=== PATIENT | male | born 1950 | race Caucasian/White ===

== ENCOUNTER → 2016-05-25 | Outpatient (CLI) | payer MEDICARE, OTHER ==
--- NOTE | 2016-05-25 14:26 | REP ---
PA AND LATERAL CHEST: 05/25/2016. Clinical history: Rhonchi. Comparison: 11/30/2015, 02/01/2014. Findings: Lungs are well inflated and without pleural effusion, lateral pleural thickening or apical scarring. No infiltrate, atelectasis or mass. The heart, mediastinal and hilar contours are normal. There are a few cuffed bronchi in the perihilar regions that may reflect some reactive airway disease or bronchitis. The aorta is mildly tortuous and unchanged but normal for age. Airway intact. Bony thorax shows marginal osteophytes in the lower thoracic spine without compression deformity. Impression: 1. Perihilar changes may reflect some bronchitis or reactive airway disease. No consolidation, effusion, cardiomegaly or edema. Signed by Matt Maciel MD 05/25/2016 07:27 P
== END ==
LOC: M LRY 10:00
PROVIDERS: ATTEND Nurse Practitioner Family
DX: R06.89 Other abnormalities of breathing (principal)
CPT/HCPCS: 71020; 94640; G0463

== ENCOUNTER → 2016-12-23 | Outpatient (CLI) | payer MEDICARE, OTHER ==
[2016-12-23 12:24] LABS: BASO # 0.1 K/mm3 (0.0-0.2); BASO % 0.8 % (0.0-1.0); EOS # 0.1 K/mm3 (0.0-0.50); EOS % 1.3 % (0.0-3.0); LARGE UNSTAINED CELL # 0.2 K/mm3 (0.0-0.4); LARGE UNSTAINED CELL % 2.4 % (0.0-4.0); LYMPH # 2.9 K/mm3 (1.5-4.5); LYMPH % 28.6 % (24.0-44.0); MEAN CORPUSCULAR HEMOGLOBIN 31.1 pg (27.0-33.0); MEAN CORPUSCULAR HGB CONC 33.6 g/dl (32.0-36.5); MEAN CORPUSCULAR VOLUME 92.4 fl (80.0-96.0); MONO # 0.5 K/mm3 (0.0-0.8); MONO % 5.2 % (0.0-5.0); NEUTROPHILS # 6.3 K/mm3 (1.8-7.7); NEUTROPHILS % 61.7 % (36.0-66.0); PLATELET COUNT, AUTOMATED 283 k/mm3 (150-450); RED CELL DISTRIBUTION WIDTH 13.1 % (11.5-14.5); WHITE BLOOD COUNT 10.1 K/mm3 (4.0-10.0)
[2016-12-23 12:33] LABS: ALBUMIN 3.8 GM/DL (3.2-5.2); ALBUMIN/GLOBULIN RATIO 1.23 (1.00-1.93); ALKALINE PHOSPHATASE 37 U/L (45-117); ALT/SGPT 23 U/L (12-78); ANION GAP 7 MEQ/L (8-16); AST/SGOT 12 U/L (15-37); BILIRUBIN,TOTAL 0.3 MG/DL (0.2-1.0); BLOOD UREA NITROGEN 22 MG/DL (7-18); CALCIUM LEVEL 10.1 MG/DL (8.8-10.2); CARBON DIOXIDE LEVEL 30 MEQ/L (21-32); CHLORIDE LEVEL 105 MEQ/L (98-107); CHOLESTEROL LEVEL 159 MG/DL (<200); CREATININE FOR GFR 1.14 MG/DL (0.70-1.30); FREE T4 0.93 NG/DL (0.76-1.46); GLOMERULAR FILTRATION RATE > 60.0 (>49); GLUCOSE, FASTING 108 MG/DL (80-110); POTASSIUM SERUM 4.2 MEQ/L (3.5-5.1); SODIUM LEVEL 142 MEQ/L (136-145); TOTAL PROTEIN 6.9 GM/DL (6.4-8.2); TRIGLYCERIDES LEVEL 180 MG/DL (<150)
== END ==
LOC: M LAB 11:22
PROVIDERS: ATTEND Nurse Practitioner Adult Health
DX: E11.9 Type 2 diabetes mellitus without complications (principal)

== ENCOUNTER → 2017-06-29 | Outpatient (CLI) | payer MEDICARE, OTHER ==
[2017-06-29 07:38] LABS: BASO # 0.1 10^3/uL (0.0-0.2); BASO % 0.8 % (0.0-1.0); EOS # 0.3 10^3/uL (0.0-0.50); EOS % 2.4 % (0.0-3.0); HEMATOCRIT 50.3 % (42.0-52.0); HEMOGLOBIN 16.7 g/dl (14.0-18.0); IMMATURE GRANULOCYTE # 0.1 10^3/uL (0-0); IMMATURE GRANULOCYTE % 0.8 % (0-3.0); LYMPH # 4.3 10^3/uL (1.5-4.5); LYMPH % 37.1 % (24.0-44.0); MEAN CORPUSCULAR HEMOGLOBIN 29.8 pg (27.0-33.0); MEAN CORPUSCULAR HGB CONC 33.2 g/dl (32.0-36.5); MEAN CORPUSCULAR VOLUME 89.8 fl (80.0-96.0); MONO # 0.8 10^3/uL (0.0-0.8); MONO % 6.5 % (0.0-5.0); NEUTROPHILS # 6.1 10^3/uL (1.8-7.7); NEUTROPHILS % 52.4 % (36.0-66.0); PLATELET COUNT, AUTOMATED 318 10^3/uL (150-450); WHITE BLOOD COUNT 11.6 10^3/uL (4.0-10.0)
[2017-06-29 08:06] LABS: ALBUMIN 3.8 GM/DL (3.2-5.2); ALBUMIN/GLOBULIN RATIO 1.19 (1.00-1.93); ALKALINE PHOSPHATASE 40 U/L (45-117); ALT/SGPT 28 U/L (12-78); ANION GAP 5 MEQ/L (8-16); AST/SGOT 15 U/L (7-37); BILIRUBIN,TOTAL 0.3 MG/DL (0.2-1.0); BLOOD UREA NITROGEN 24 MG/DL (7-18); CALCIUM LEVEL 9.8 MG/DL (8.8-10.2); CARBON DIOXIDE LEVEL 31 MEQ/L (21-32); CHLORIDE LEVEL 107 MEQ/L (98-107); CHOLESTEROL LEVEL 174 MG/DL (<200); CHOLESTEROL RISK RATIO 5.437 (<5); CREATININE FOR GFR 1.28 MG/DL (0.70-1.30); FREE T4 0.84 NG/DL (0.76-1.46); GLOMERULAR FILTRATION RATE 59.5 (>49); GLUCOSE, FASTING 123 MG/DL (70-100); HDL CHOLESTEROL 32 MG/DL (>40); LDL CHOLESTEROL 86.2 MG/DL (<100); NON-HDL-C 142 MG/DL; POTASSIUM SERUM 4.2 MEQ/L (3.5-5.1); SODIUM LEVEL 143 MEQ/L (136-145); TRIGLYCERIDES LEVEL 279 MG/DL (<150)
[2017-06-29 08:50] LABS: ESTIMATED AVERAGE GLUCOSE 163 MG/DL (60-110); HEMOGLOBIN A1c 7.3 %
[2017-06-29 09:26] LABS: TOTAL 25(OH) VITAMIN D 41.6 NG/ML (30.0-100.0)
== END ==
LOC: M LAB 06:28
DX: E11.9 Type 2 diabetes mellitus without complications (principal); E55.9 Vitamin D deficiency, unspecified; E78.4 Other hyperlipidemia
CPT/HCPCS: 84443

== ENCOUNTER → 2019-02-20 | Outpatient (REF) | payer MEDICARE, OTHER | LOC: M SFHCLERA 09:31 | PROVIDERS: ATTEND Nurse Practitioner Family | DX: R30.0 Dysuria (principal) | CPT/HCPCS: 81002; 87086; G0463 ==

== ENCOUNTER → 2019-05-17 | Outpatient (REF) | payer MEDICARE, OTHER ==
[2019-05-17 13:37] LABS: BLOOD UREA NITROGEN 21 MG/DL (7-18); CALCIUM LEVEL 9.5 MG/DL (8.8-10.2); CARBON DIOXIDE LEVEL 27 MEQ/L (21-32); CHLORIDE LEVEL 112 MEQ/L (98-107); CREATININE FOR GFR 1.12 MG/DL (0.70-1.30); GLOMERULAR FILTRATION RATE > 60.0 (>42); GLUCOSE, FASTING 116 MG/DL (70-100); POTASSIUM SERUM 3.8 MEQ/L (3.5-5.1); SODIUM LEVEL 144 MEQ/L (136-145)
== END ==
LOC: M LABDRAW1 12:49
PROVIDERS: ATTEND Urology
DX: R30.0 Dysuria (principal)

== ENCOUNTER → 2019-05-17 | Outpatient (REF) | payer MEDICARE, OTHER ==
[~2019-05-17] MED LIST: ENAL20TA PO; FENO145T7 PO; PARO12.54 PO; PYRI1TAB5 PO
== END ==
LOC: M SMT 13:09
PROVIDERS: ATTEND Urology
DX: R30.0 Dysuria (principal)
CPT/HCPCS: 36415; 80048; 88108; G0463

== ENCOUNTER → 2019-05-25 | Outpatient (CLI) | payer MEDICARE, OTHER ==
[~2019-05-25] MED LIST changes: -ENAL20TA PO; -FENO145T7 PO; +ISOVUE-370 76% 100ML VIAL (Q9967) As Ordered ONE; -PARO12.54 PO; -PYRI1TAB5 PO
--- NOTE | 2019-05-25 15:14 | REP ---
Clinical: Microscopic hematuria. Technique: Axial precontrast, contrast enhanced, and delayed images of the abdomen and pelvis using 100 ml Isovue 370 intravenous contrast material with coronal and sagittal re-formations. Volume rendered CT 3-D urogram obtained. Findings: Small left-sided renovascular calcifications are identified along with nonobstructing 9 mm calculus in the lower pole. No associated hydronephrosis or obstructing ureteral calculi identified. Bilateral perinephric stranding is noted which may represent chronic change. Small bilateral simple and complex cysts are suggested measuring up to approximately 1.4 cm. No definite renal mass. Bladder demonstrates presumed chronic wall thickening and 3.8 cm bladder stone. Liver demonstrates few scattered hypodensities measuring up to 2 cm suggesting small cysts. Spleen, pancreas, gallbladder, and bilateral adrenal glands are normal. The enteric system is without obstruction or acute inflammatory process. Colonic diverticulosis noted without acute diverticulitis. Normal terminal ileum and appendix identified in the right lower quadrant. Further evaluation the pelvis demonstrates normal prostate gland and fat containing left inguinal hernia. No ascites. No free air. No adenopathy. Atherosclerotic changes to the aorta and vasculature noted without aneurysm or dissection. Musculoskeletal structures demonstrate degenerative changes without focal abnormality. Impression: 1. A 9 mm nonobstructing left renal calculus and 3.8 cm bladder stone. 2. Few bilateral simple and complex renal cysts may warrant ultrasound evaluation to exclude the possibility of small renal mass. 3. Diverticulosis without acute diverticulitis. Electronically Signed by Jorge Anderson MD 05/25/2019 03:05 P
== END ==
LOC: M RAD 13:45
PROVIDERS: ATTEND Urology
DX: N20.0 Calculus of kidney (principal); N21.0 Calculus in bladder; N28.1 Cyst of kidney, acquired; K57.30 Diverticulosis of large intestine without perforation or abscess without bleeding; F17.200 Nicotine dependence, unspecified, uncomplicated; R31.29 Other microscopic hematuria
CPT/HCPCS: 74178; Q9967

== ENCOUNTER 2019-05-29 23:05 | Emergency (ER) | payer MEDICARE, OTHER ==
[~2019-05-29] VITALS: Ht 182.9 cm; Wt 100.0 kg
[2019-05-29 23:55] LABS: APPEARANCE, URINE HAZY (CLEAR); BACTERIA, URINE AUTO NEGATIVE (NEGATIVE); BILIRUBIN, URINE AUTO NEGATIVE (NEGATIVE); BLOOD, URINE BLOOD 3+ (NEGATIVE); COLOR, URINE YELLOW (YELLOW); GLUCOSE, URINE (UA) AUTO NEGATIVE (NEGATIVE); KETONE, URINE AUTO TRACE mg/dL (NEGATIVE); LEUKOCYTE ESTERASE, URINE AUTO NEGATIVE (NEGATIVE); MUCUS, URINE SMALL (NEGATIVE); NITRITE, URINE AUTO NEGATIVE (NEGATIVE); PROTEIN, URINE AUTO 3+ mg/dL (NEGATIVE); RBC, URINE AUTO TNTC /HPF (0-3); SQUAMOUS EPITHELIAL CELL UR AU 0 /HPF (0-6); TRANSITIONAL EPITHELIAL AUTO <1 /HPF; WBC, URINE AUTO 11 /HPF (0-3)
[2019-05-30] MEDS ORDERED: FENO145T7 PO (00:12)
[2019-05-30] MEDS ORDERED: ENAL20TA PO (00:12)
[2019-05-30] MEDS ORDERED: PARO12.54 PO (00:12)
[2019-05-30] MEDS ORDERED: PYRI1TAB5 PO (01:51)
[2019-05-30] MEDS ORDERED: OXYCODONE/APAP 5MG/325MG(BULK FOR ED) 1 TABLET PO ONE (02:00)
[2019-05-30] MEDS ORDERED: PHENAZOPYRIDINE 100 MG TAB PO ONE (02:00)
[2019-05-30 02:14] VITALS: BP 151/86
== END 2019-05-30 02:15 | disposition home or self-care (01) ==
LOC: M ED 23:05
DX: N21.0 Calculus in bladder (principal); R30.0 Dysuria; R31.9 Hematuria, unspecified; F17.200 Nicotine dependence, unspecified, uncomplicated; E78.00 Pure hypercholesterolemia, unspecified; E11.9 Type 2 diabetes mellitus without complications; F32.9 Major depressive disorder, single episode, unspecified; Z79.899 Other long term (current) drug therapy

== ENCOUNTER → 2019-06-14 | Outpatient (CLI) | payer MEDICARE, OTHER ==
[~2019-06-14] MED LIST changes: +ENAL20TA PO; +FENO145T7 PO; -ISOVUE-370 76% 100ML VIAL (Q9967) As Ordered ONE; +PARO12.54 PO; +PYRI1TAB5 PO
--- NOTE | 2019-06-14 13:08 | REP ---
CHEST, TWO VIEWS: COMPARISON: 05/25/2016. There is no evidence of acute infiltrate. No pleural effusion is seen. The heart is normal in size. The mediastinal silhouette is unremarkable. The visualized osseous structures are intact. There are degenerative changes of the spine. IMPRESSION: No acute pulmonary disease. Electronically Signed by Mati Dave MD 06/14/2019 07:56 P
== END ==
LOC: M LRY 11:51
PROVIDERS: ATTEND Nurse Practitioner Adult Health
DX: Z01.818 Encounter for other preprocedural examination (principal); N21.0 Calculus in bladder

== ENCOUNTER 2019-06-23 08:46 | Day surgery (SDC) | payer MEDICARE, OTHER ==
[~2019-06-23] VITALS: Ht 182.9 cm; Wt 98.4 kg
[~2019-06-23 08:46] MED LIST changes: +JANU50TA25 PO; +LIDOCAINE 1% MDV 20ML VIAL SQ PRN; +NITR100C2 PO; +ceFAZolin SOD 2 GM in IV 1 EA IV ONE
[2019-06-23] MEDS ORDERED: LR 1,000 ML IV ONE (10:00)
[2019-06-23] MEDS ORDERED: fentaNYL 100 MCG/2 ML INJECTION (J3010) As Ordered ONE ×2 (11:00→11:57)
[2019-06-23] MEDS ORDERED: MIDAZOLAM INJ 2 MG/2 ML VIAL (J2250) As Ordered ONE (11:00)
[2019-06-23] MEDS ORDERED: propofoL 200 MG/20 ML VIAL As Ordered ONE (11:01)
[2019-06-23] MEDS ORDERED: LIDOCAINE 2% INJ 100 MG/5 ML SDV (FOR ANES.) As Ordered ONE (11:01)
[2019-06-23] MEDS ORDERED: dexameTHASONE 4 MG/ML 1ML VIAL (J1100) As Ordered ONE (11:01)
[2019-06-23] MEDS ORDERED: ONDANSETRON 4MG/2ML VIAL (J2405) As Ordered ONE (11:01)
[2019-06-23] MEDS ORDERED: ePHEDrine SULFATE 25 MG/5 ML(5MG/ML) SYRINGE As Ordered ONE (12:40)
[2019-06-23] MEDS ORDERED: ONDANSETRON 4MG/2ML VIAL (J2405) IV PRN (13:15)
[2019-06-23] MEDS ORDERED: LR 1,000 ML IV SCH (13:15)
[2019-06-23] MEDS ORDERED: fentaNYL 100 MCG/2 ML INJECTION (J3010) IV PRN (13:15)
[2019-06-23] MEDS ORDERED: oxyCODONE 5MG TAB PO PRN (13:15)
[2019-06-23] MEDS ORDERED: ACETAMINOPHEN TAB 650MG DOSE (2X325MG) PO PRN (14:15)
[2019-06-23] MEDS ORDERED: oxyCODONE 5MG TAB As Ordered ONE (14:25)
[2019-06-23 15:00] VITALS: BP 142/81
--- NOTE | 2019-06-23 18:16 | RO ---
DATE OF PROCEDURE: 06/23/2019 PREOPERATIVE DIAGNOSIS: Bladder stone. POSTOPERATIVE DIAGNOSIS: Bladder stone. OPERATIVE PROCEDURE: Cystoscopy, laser cystolitholapaxy, urethral dilation. SURGEON: Mauri Waddell MD UTILITIES AND MAINTENANCE SUPERVISOR: None. ANESTHESIA: General. OPERATIVE INDICATIONS: This 68-year-old male was found to have an approximately 4 to 5 cm heraclio bladder stone on recent office cystoscopy. He was brought to the operating room today for treatment. DESCRIPTION OF OPERATION: The patient was brought to the operating room and general anesthesia was induced. Prophylactic antibiotics were infused. He was then placed in the dorsal lithotomy position and prepped and draped in the usual sterile fashion. At this point I attempted to insert a resectoscope into the urethral meatus using the visual obturator, but it would not go as the meatus was too narrow. I therefore dilated the urethral meatus to 32 [place] using curved metal sounds. I then inserted the resectoscope all the way into the bladder and once inside the patient had a very large stone that you could see protruding right through the bladder neck. I then utilized a 1000 micron laser fiber and started fragmenting the stone into smaller pieces. Of note this worked well, but it was taking a very long time to adequately fragment the stone. I then traded out the resectoscope for a nephroscope and utilized the CyberWand to fragment the stone. Of note, this fragmented the stone at a much faster pace. Once the stone was adequately fragmented, I utilized an Ellik evacuator and evacuated a large amount of stone out of the bladder. There were a few stone fragments that were just a little too large to evacuate and I used the laser to fragment the remainder of these stones. Once that was done, I utilized the Ellik evacuator again and removed all the remainder of the stone fragments from the bladder. Once all the fragments were removed, the resectoscope was removed and #18-[place] Mercado catheter was inserted into the bladder. The balloon was filled with 10 mL of sterile water and then the catheter was connected to gravity drainage. This marked the conclusion of the procedure. The patient was then taken out of the dorsal lithotomy position, awakened from anesthesia and transported to the recovery room in stable condition. ESTIMATED BLOOD LOSS: 10 mL. COMPLICATIONS: None. SPECIMENS: Bladder stone fragments. PLAN: The patient will followup in clinic in a few days for catheter removal. [facility]ENTER[facility]
== END 2019-06-23 15:10 | disposition home or self-care (01) ==
LOC: M SDC 08:46
PROVIDERS: ATTEND Urology
DX: N21.0 Calculus in bladder (principal); N20.0 Calculus of kidney; Q61.00 Congenital renal cyst, unspecified; E11.9 Type 2 diabetes mellitus without complications; I10 Essential (primary) hypertension; E78.00 Pure hypercholesterolemia, unspecified; N40.0 Benign prostatic hyperplasia without lower urinary tract symptoms; Z87.440 Personal history of urinary (tract) infections; F17.210 Nicotine dependence, cigarettes, uncomplicated; Z79.899 Other long term (current) drug therapy; Z79.84 Long term (current) use of oral hypoglycemic drugs
CPT/HCPCS: 52318; 82365; 88300; C1769; J0690; J1100; J2250; J2405; J3010

== ENCOUNTER → 2019-08-09 | Outpatient (CLI) | payer MEDICARE, OTHER ==
[~2019-08-09] MED LIST changes: -LIDOCAINE 1% MDV 20ML VIAL SQ PRN; -ceFAZolin SOD 2 GM in IV 1 EA IV ONE
--- NOTE | 2019-08-09 15:43 | REP ---
REASON FOR EXAM: Clinical sinusitis with left retro-ocular pressure. Limited plain film examination of the paranasal sinuses show no abnormal air fluid levels or soft tissue densities. The bony architecture surrounding the paranasal sinuses is within normal limits. IMPRESSION: Unremarkable plain film examination of the paranasal sinuses. If paranasal sinus mucosal abnormalities are of clinical concern, then CT is more sensitive and should be considered. Electronically Signed by Pablo Payne DO 08/09/2019 03:44 P
== END ==
LOC: M LRY 13:12
PROVIDERS: ATTEND Nurse Practitioner Adult Health
DX: J01.90 Acute sinusitis, unspecified (principal)

== ENCOUNTER → 2019-08-26 | Outpatient (CLI) | payer MEDICARE, OTHER ==
[~2019-08-26] MED LIST changes: +ISOVUE-370 76% 100ML VIAL As Ordered ONE
--- NOTE | 2019-08-26 16:56 | REP ---
MAXILLOFACIAL CT STUDY WITH IV CONTRAST: HISTORY: Sinusitis. Elevated white blood cell count. Eye pain. Comparison paranasal sinus radiographs are from August 09, 2019. CT CONTRAST DOSE: 75 mL of intravenous Isovue 370 is administered. FINDINGS: Preliminary lead ingot molder images demonstrate that the patient is edentulous. There is a 1.5 cm mucous retention cyst in the floor the left maxillary sinus. A small mucous retention cyst is seen inferiorly in the right maxillary sinus. The maxillary sinuses are otherwise clear. Ethmoid air cells are clear. Sphenoid aeration is normal. The frontal sinuses are clear. Mastoid aeration is normal and symmetric. There is mild vascular calcification in the distal internal carotid arteries. No intraorbital mass or abnormal fluid collection is seen. The deep facial soft tissues are unremarkable. Ostiomeatal complexes are clear. Bony nasal septum is in the midline. Nasal turbinate soft tissues are unremarkable. A small aerated cass bullosa is noted on the left. 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 This is fairly large, measuring 13 mm in greatest diameter. No other intracranial abnormality. IMPRESSION: 1. 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 2. Small mucous retention cysts are seen, one on each side in the maxillary sinuses. 3. Otherwise unremarkable maxillofacial CT study. Electronically Signed by Cole Bosch MD 08/26/2019 05:10 P
== END ==
LOC: M RAD 14:29
PROVIDERS: ATTEND Nurse Practitioner Adult Health
DX: I67.1 Cerebral aneurysm, nonruptured (principal); J34.1 Cyst and mucocele of nose and nasal sinus; J01.90 Acute sinusitis, unspecified; D72.829 Elevated white blood cell count, unspecified; H57.12 Ocular pain, left eye
CPT/HCPCS: 70487; Q9967

== ENCOUNTER → 2019-12-04 | Outpatient (CLI) | payer MEDICARE, OTHER ==
[~2019-12-04] MED LIST changes: -ENAL20TA PO; +ENAL20TA11 PO; -ISOVUE-370 76% 100ML VIAL As Ordered ONE
== END ==
LOC: M LABSMTC 09:54
PROVIDERS: ATTEND Student in an Organized Health Care Education/Training Program
DX: Z11.59 Encounter for screening for other viral diseases (principal)
CPT/HCPCS: C9803; U0003

== ENCOUNTER 2021-12-18 10:38 | Emergency (ER) | payer MEDICARE, OTHER ==
[~2021-12-18] VITALS: Ht 182.9 cm; Wt 102.6 kg
[~2021-12-18 10:38] MED LIST changes: -PARO12.54 PO; +[UNRECOGNIZED DRUG - CODE] PO
[2021-12-18 10:50] VITALS: BP 157/71
== END 2021-12-18 11:07 | disposition left against medical advice (07) ==
LOC: M ED 10:38 → EDBD 10:38 → M ED 11:07
DX: Z53.29 Procedure and treatment not carried out because of patient's decision for other reasons (principal)

== ENCOUNTER → 2023-12-31 | Outpatient (CLI) | payer MEDICARE, OTHER ==
[~2023-12-31] MED LIST changes: +ENAL1TAB52 PO; -ENAL20TA11 PO
[2023-12-31 13:09] LABS: APPEARANCE, URINE HAZY (CLEAR); BACTERIA, URINE AUTO 1+ (NEGATIVE); BILIRUBIN, URINE AUTO NEGATIVE (NEGATIVE); BLOOD, URINE BLOOD NEGATIVE (NEGATIVE); COLOR, URINE AMBER (YELLOW); GLUCOSE, URINE (UA) AUTO NEGATIVE (NEGATIVE); KETONE, URINE AUTO TRACE mg/dL (NEGATIVE); LEUKOCYTE ESTERASE, URINE AUTO 1+ (NEGATIVE); NITRITE, URINE AUTO NEGATIVE (NEGATIVE); PROTEIN, URINE AUTO 1+ mg/dL (NEGATIVE); RBC, URINE AUTO 6 /HPF (0-3); SPECIFIC GRAVITY URINE AUTO 1.016 (1.002-1.035); SQUAMOUS EPITHELIAL CELL UR AU 0 /HPF (0-6); UROBILINOGEN, URINE AUTO 0.2 mg/dL (0.0-2.0); WBC, URINE AUTO 20 /HPF (0-3)
[2023-12-31 13:30] LABS: CREATININE, URINE 152.4 MG/DL; MAU/CREAT RATIO 64.3 MCG/MG (0.0-30.0)
[2023-12-31 13:31] LABS: CALCIUM LEVEL 11.5 MG/DL (8.3-10.6); CREATININE FOR GFR 1.59 MG/DL (0.70-1.30); GLOMERULAR FILTRATION RATE 45.4 (>42); POTASSIUM SERUM 4.8 MMOL/L (3.5-5.1)
== END ==
LOC: M WUC 10:49
PROVIDERS: ATTEND Physician Assistant
DX: I10 Essential (primary) hypertension (principal); Z79.899 Other long term (current) drug therapy

== ENCOUNTER → 2024-02-02 | Outpatient (CLI) | payer MEDICARE, OTHER ==
[2024-02-02 12:19] LABS: CALCIUM LEVEL 11.7 MG/DL (8.3-10.6); CREATININE FOR GFR 1.49 MG/DL (0.70-1.30); GLOMERULAR FILTRATION RATE 48.9 (>42); POTASSIUM SERUM 4.3 MMOL/L (3.5-5.1)
== END ==
LOC: M WUC 09:13
PROVIDERS: ATTEND Physician Assistant
DX: E11.65 Type 2 diabetes mellitus with hyperglycemia (principal)

== ENCOUNTER 2024-06-23 06:16 | Day surgery (SDC) | payer MEDICARE, OTHER ==
[~2024-06-23] VITALS: Ht 182.9 cm; Wt 100.5 kg
[~2024-06-23 06:16] MED LIST changes: +ATOR1TAB19 PO; +BASA100I SC; +CHLO125TA PO; +FENO160T10 PO; +GLYCOPYRROLATE INJ 0.2 MG/ML 2 ML VIAL As Ordered ONE; +HYDR12CA PO; +INSU100I24 SC; +JARD1TAB PO; +MAGN400T35 PO; +METF500T13 PO; +METO1TAB87 PO; +PARO25TA5 PO; +PHENYLEPHRINE 10% OPHTH SOL 5ML OS PRN; +fentaNYL 100 MCG/2 ML INJECTION As Ordered ONE
[2024-06-23] MEDS: OFLOXACIN 0.3 % (OCUFLOX) OPTH SOL 5ML OS ONE (06:32)
[2024-06-23] MEDS: LIDOCAINE 3.5 % 1ML OPHTH TOPICAL GEL OU ONE (06:32)
[2024-06-23] MEDS: TROPICAMIDE 1% OPHTH SOLN 15ML OS SCH (06:33)
[2024-06-23] MEDS: CYCLOPENTOLATE 1% OPHTH SOLN 2ML BTL OS SCH (06:33)
[2024-06-23] MEDS: PHENYLEPHRINE 2.5% OPHTH SOL 2ML OS SCH (06:33)
[2024-06-23] MEDS: LIDOCAINE 1% SDV 5ML VIAL As Ordered ONE (07:46)
[2024-06-23] MEDS: BSS IRRIG/VANCO(10MG)/TOBRA(5MG)/EPINEPH(1:1000-0.5CC)500ML BAG-ORONLY As Ordered ONE (07:47)
[2024-06-23] MEDS: CEFUROXIME 1MG/0.1ML INTRACAMERAL INJ As Ordered ONE (07:47)
[2024-06-23 08:02] VITALS: BP 166/84; TEMP 97.1; O2SAT 95
== END 2024-06-23 08:21 | disposition home or self-care (01) ==
LOC: M SDC 06:16
PROVIDERS: ATTEND Ophthalmology
DX: E11.36 Type 2 diabetes mellitus with diabetic cataract (principal); H25.12 Age-related nuclear cataract, left eye; I10 Essential (primary) hypertension; E78.00 Pure hypercholesterolemia, unspecified; Z79.84 Long term (current) use of oral hypoglycemic drugs; Z79.899 Other long term (current) drug therapy; F17.210 Nicotine dependence, cigarettes, uncomplicated; Z85.828 Personal history of other malignant neoplasm of skin
CPT/HCPCS: 66984; J0697; J1596; J3010; V2632